=== PATIENT | female | born 1965 | race Asian ===

== ENCOUNTER 2024-11-23 20:12 | Emergency (ER) | payer MEDICAID ==
[~2024-11-23] VITALS: Ht 154.9 cm; Wt 92.4 kg
[2024-11-23 20:16] VITALS: BP 131/59; PULSE 103; RESP 20; TEMP 98.4; O2SAT 100
--- NOTE | 2024-11-23 21:12 | DVH ---
EXAM: XY LUMBAR SPINE 3 VIEW INDICATION: Radiculopathy TECHNIQUE: 3 views of the lumbar spine COMPARISON: None FINDINGS/IMPRESSION: No radiographic evidence of an acute osseous abnormality. There is no acute fracture, osseous malalig nment, or aggressive focal osseous lesion. Vascular calcifications. No endplate compression fracture, spondylolisthesis, or pars defect. Relative bony foraminal narrowing at L4-L5 and L5-S1.
--- NOTE | 2024-11-23 21:13 | DVH ---
CT OF THE CERVICAL SPINE WITHOUT CONTRAST HISTORY: Neuropathy/weakness COMPARISON: CT-CERV SPIN WO CONT on DOS: 07/25/19 TECHNIQUE: Helical images through the cervical spine were obtained without contrast. Sagittal and cor onal reformats were obtained. One or more of the following radiation dose reduction techniques were u sed for this examination: automated exposure control, adjustment of the mA and/or kV according to pat ient size, use of iterative reconstruction technique. Dose: CTDIvol: 27.14 mGy, DLP: 642.59 mGy.cm FINDINGS: There is no acute displaced fracture. There is reversal of the cervical lordosis. There are multilev el degenerative changes of the cervical spine characterized by endplate osteophytosis and minimal int ervertebral disc space narrowing. There is grade 1 anterolisthesis of C2 on C3 and C3 on C4. An oste ophyte at C5 effaces the thecal sac. There is no CT evidence of high-grade spinal canal or neural for aminal stenosis. The paraspinal soft tissues are unremarkable. A cyst is seen in the left lung apex. IMPRESSION: 1. No acute displaced fracture. 2. Mild degenerative changes of the cervical spine as detailed. 3. If clinical symptoms persist, MRI may be beneficial in further assessment.
--- NOTE | 2024-11-23 21:16 | DVH ---
CT BRAIN WITHOUT CONTRAST HISTORY: Neuropathy/weakness TECHNIQUE: Axial scans were obtained from the skull base through the vertex without contrast. Sagitta l and coronal reformats were generated. One or more of the following radiation dose reduction techniq ues were used for this examination: automated exposure control, adjustment of the mA and/or kV accord ing to patient size, use of iterative reconstruction technique. COMPARISON: CT CERVICAL WITHOUT CONTRAST on DOS: 11/23/24, CT-CERV SPIN WO CONT on DOS: 07/25/19, CT-HE AD WO CONTRAST on DOS: 02/22/19 Dose: CTDIvol: 57.96 mGy, DLP: 1142.1 mGy.cm FINDINGS: No acute territorial infarct, intracranial hemorrhage, or mass effect. There are global involutional changes with compensatory prominence of the ventricles and sulci. Patchy periventricular and subcorti sujey white matter hypoattenuation is nonspecific. The orbits are normal. The paranasal sinuses and mastoid air cells are clear. The osseous structures are unremarkable. IMPRESSION: 1. No acute territorial infarct, intracranial hemorrhage, or mass effect. 2. Nonspecific patchy white matter hypoattenuation, which may be referable to chronic microvascular c hanges, though additional etiologies cannot be excluded in the given clinical setting. If clinical s ymptoms persist, MRI may be beneficial in further assessment. 3. Age-related involutional changes.
[2024-11-23 21:24] LABS: Hematocrit 45.9 % (36.0-46.0); Hemoglobin 16.2 g/dL (12.2-16.2); Mean Corpuscular Hemoglobin 31.8 pg (28.0-32.0); Mean Corpuscular Volume 89.6 fL (80.0-100.0); Nucleated Red Blood Cells % 0.2 %
[2024-11-23 21:31] LABS: Chloride 103 mmol/L (98-107); Potassium 3.6 mmol/L (3.5-5.1); Sodium 139 mmol/L (136-145)
[2024-11-23 21:32] LABS: Anion Gap 10 (5-15); Calcium 9.1 mg/dL (8.7-10.4); Carbon Dioxide 26 mmol/L (20-31)
[2024-11-23 21:37] LABS: BUN/Creatinine Ratio 8.5 (10.0-20.0); Blood Urea Nitrogen 10 mg/dL (9-23)
[2024-11-23 21:56] LABS: Glucose 240 mg/dL (74-106)
[2024-11-23] MEDS ORDERED: GABA-1250 PO (22:17)
--- NOTE | 2024-11-23 22:18 | ED.PDOC ---
Musculoskeletal HPI Comments This is a pleasant but severely morbidly obese 59-year-old female who arrives the ED today for evaluation of bilateral arm and bilateral foot tingling and numbness for some time. Patient is managed by Dr. Vasquez and patient states that he advised the patient to come to our facility today for imaging evaluation of her concerns. Vital signs were stable on arrival. Chief Complaint: Upper Extremity Time Seen by MD: 20:22 Reviewed Notes: Nurses Notes Allergies: Coded Allergies: Aspirin (Unverified Allergy, Unknown, 05/25/15) Uncoded Allergies: ASPRIN (Allergy, Unknown, 05/25/15) Information Source: Patient Mode of Arrival: Ambulatory Extremity Location: Arm, Back, Foot Timing: Months Prehospital treatment: Treatment Severity: Moderate Able to Move Extremity: Yes Bear Weight: Fully Pain: Mild Hand Dominance: Right Mechanism: Spontaneous Circumstances: Spontaneous Onset of Symptoms: Spontaneous Symptoms: Pain DVT Risk Factors: NONE Past Medical History PAST MEDICAL HISTORY: COPD, DM, HTN Surgical History: Cholecystectomy LOAF COUNTER History: No Pertinent LOAF COUNTER History Family History Family History: Unobtainable Social History Smoker: Non-Smoker Alcohol: Denies ETOH Use Drugs: Denies Drug Use Lives In: Home Constitutional: denies: chills, diaphoresis, fatigue, fever, malaise, sweats, weakness, others EENTM: denies: blurred vision, double vision, ear bleeding, ear discharge, ear drainage, ear pain, ear ringing, eye pain, eye redness, hearing loss, mouth pain, mouth swelling, nasal discharge, nose bleeding, nose congestion, nose pain, photophobia, tearing, throat pain, throat swelling, voice changes, others Respiratory: denies: cough, hemoptysis, orthopnea, SOB at rest, shortness of breath, SOB with excertion, stridor, wheezing, others Cardiovascular: denies: chest pain, dizzy spells, diaphoresis, Dyspnea on exertion, edema, irregular heart beat, left arm pain, lightheadedness, palpitations, PND, syncope, others Gastrointestinal: denies: abdomen distended, abdominal pain, blood streaked bowels, constipated, diarrhea, dysphagia, difficulty swallowing, hematemesis, melena, nausea, poor appetite, poor fluid intake, rectal bleeding, rectal pain, vomiting, others Genitourinary: denies: abnormal vagina bleeding, burning, dyspareunia, dysuria, flank pain, frequency, hematuria, incontinence, pain, , vagina discharge, urgency, others Neurological: denies: dizziness, fainting, headache, left sided numbness, left sided weakness, numbness, paresthesia, pre-existing deficit, right sided numbness, right sided weakness, seizure, speech problems, tingling, tremors, weakness, others Musculoskeletal: reports: others (Bilateral arm and bilateral foot tingling and numbness); denies: back pain, gout, joint pain, joint swelling, muscle pain, muscle stiffness, neck pain Integumetry: denies: bruises, change in color, change in hair/nails, dryness, laceration, lesions, lumps, rash, wounds, others Allergic/Immunocompromised: denies: Difficulty Healing, Frequent Infections, Hives, Itching, others Hematologic/Lymphatic: denies: anemia, blood clots, easy bleeding, easy bruising, swollen glands, others Endocrine: denies: excessive hunger, excessive sweating, excessive thirst, excessive urination, flushing, intolerance to cold, intolerance to heat, unexplained weight gain, unexplained weight loss, others Psychiatric: denies: anxiety, bipolar disorder, depression, hopeless, panic disorder, schizophrenia, sleepless, suicidal, others Physical Exam General Appearance: Mild Distress (Patient was in moderate distress at time of evaluation.), Normal HEENT: Head (Cranial exam was unremarkable. No signs of trauma. No skull depressions or deformities.), Normal ENT Inspection, Pharynx Normal, TMs Normal Neck: Other (Reduced range of motion appreciated bilateral cervical spine region. [id number] hypertonicity. No step-offs.) Respiratory: Chest Non-Tender, Lungs Clear, No Accessory Muscle Use, No Respiratory Distress, Normal Breath Sounds Cardiovascular: No Edema, No JVD, No Murmur, No Gallop, Normal Peripheral Pulses, Regular Rate/Rhythm Breast Exam: Deferred Gastrointestinal: No Organomegaly, Non Tender, No Pulsatile Mass, Normal Bowel Sounds, Soft Genitalia: Deferred Pelvic: Deferred Rectal: Deferred Extremities: No calf tenderness, Normal capillary refill, Normal inspection, Normal range of motion, Non-tender, No pedal edema Neurologic: Alert, Normal Affect, Normal Mood Cerebellar Function: NOT DONE Reflexes: NOT DONE Skin: Dry, Normal Color, Warm Lymphatic: No Adenopathy Was a procedure done? Was a procedure done?: No Differential Diagnosis EXT Differential Diagnosis: Other (Intracranial mass, cervical vertebrae fracture, degenerative disc disease of the cervical spine and/or lumbar spine.) X-Ray, Labs, Meds, VS Vital Signs Date Time Temp Pulse Resp B/P (MAP) Pulse Ox O2 Delivery O2 Flow Rate FiO2 11/23/24 20:16 98.4 103 20 131/59 100 98.4 Lab Test 11/23/24 21:10 Range/Units White Blood Count 11.5 H 4.4-10.8 10^3/uL Red Blood Count 5.12 4.0-5.20 10^6/uL Hemoglobin 16.2 12.2-16.2 g/dL Hematocrit 45.9 36.0-46.0 % Mean Corpuscular Volume 89.6 80.0-100.0 fL Mean Corpuscular Hemoglobin 31.8 28.0-32.0 pg Mean Corpuscular Hemoglobin Concent 35.4 32.0-36.0 g/dL Red Cell Distribution Width 12.7 11.8-14.3 % Platelet Count 213 140-450 10^3/uL Mean Platelet Volume 9.0 6.9-10.8 fL Neutrophils (%) (Auto) 61.2 37.0-80.0 % Lymphocytes (%) (Auto) 29.4 10.0-50.0 % Monocytes (%) (Auto) 6.3 0.0-12.0 % Eosinophils (%) (Auto) 1.9 0.0-7.0 % Basophils (%) (Auto) 1.2 0.0-2.0 % Neutrophils # (Auto) 7.0 1.6-8.6 10 ^3/uL Lymphocytes # (Auto) 3.4 0.4-5.4 10 ^3/uL Monocytes # (Auto) 0.7 0-1.3 10 ^3/uL Eosinophils # (Auto) 0.2 0-0.8 10 ^3/uL Basophils # (Auto) 0.1 0-0.2 10 ^3/uL Nucleated Red Blood Cells 0.2 % Sodium Level 139 136-145 mmol/L Potassium Level 3.6 3.5-5.1 mmol/L Chloride Level 103 98-107 mmol/L Carbon Dioxide Level 26 20-31 mmol/L Anion Gap 10 5-15 Blood Urea Nitrogen 10 9-23 mg/dL Creatinine 1.17 H 0.550-1.02 mg/dL Glomerular Filtration Rate Calc 54 >90 mL/min BUN/Creatinine Ratio 8.5 L 10.0-20.0 Serum Glucose 240 H 74-106 mg/dL Calcium Level 9.1 8.7-10.4 mg/dL X-Ray, Labs, Meds, VS Comment All studies performed the ED were evaluated by me personally. Serum studies revealed an elevated glucose indicative of a diabetic state. Lumbar spine x-ray revealed some foraminal narrowing at L4-L5 and L5-S1. CT of the cervical spine was remarkable for a grade 1 anterior listhesis of C2 on C3 and C3 on C4. Osteophyte at C5 effaces the thecal sac patient appears to be suffering from neuropathies related to lumbar and cervical concerns. Patient should follow up with the specialists. Time of 1ST Reevaluation: 22:14 Reevaluation 1ST: Unchanged Consultation: PCP Patient Education/Counseling: Diagnosis, Treatment Family Education/Counseling: Diagnosis, Treatment Sepsis Recent Procedure: No On Antibiotic Therapy: No Respiratory Rate >20: No Heart Rate >90: No Temp<36 C (96.8 F) or >38.3 C: No SBP <90 or MAP <65 mmHG: No New Acute Mental Status Change: No Is the patient on CPAP, BIPAP,: No IV fluid given: No Departure 1 Departure Time of Disposition: 22:15 Impression: Primary Impression: Cervical radiculopathy Additional Impressions: Degenerative joint disease of cervical spine Lumbar radiculopathy Hyperglycemia Disposition: 01 HOME / SELF CARE / HOMELESS Condition: Stable Additional Instructions: Advised patient utilize medication as needed for symptomatic relief in additionally, patient should follow up with specialist for continued evaluation and management. e-Prescriptions Gabapentin (Gabapentin) 300 Mg Cap 1 CAP PO Q6HP PRN, #30 CAP 0 Refills Prov: DANA FLORES PAC 11/23/24 Discharged With: Self, Spouse Critical Care Note Critical Care Time?: No Stability Stability form required: No Heart Score Heart Score: Heart Score Response (Comments) Value History N/A 0 EKG N/A 0 Age N/A 0 Risk Factors N/A 0 Troponin N/A 0 Total 0 DANA FLORES PAC Nov 23, 2024 22:18
== END 2024-11-23 23:40 | disposition home or self-care (01) ==
LOC: ER 20:12
DX: M54.12 Radiculopathy, cervical region (principal); M54.16 Radiculopathy, lumbar region; E11.65 Type 2 diabetes mellitus with hyperglycemia; E66.01 Morbid (severe) obesity due to excess calories; J44.9 Chronic obstructive pulmonary disease, unspecified; I10 Essential (primary) hypertension; Z88.6 Allergy status to analgesic agent; Z90.49 Acquired absence of other specified parts of digestive tract; Z68.38 Body mass index [BMI] 38.0-38.9, adult
CPT/HCPCS: 36415; 70450; 72100; 72125; 80048; 85025